=== PATIENT | male | born 1945 | race Caucasian/White ===

== ENCOUNTER 2016-07-23 16:55 | Emergency (ER) | payer MEDICARE ==
[~2016-07-23] VITALS: Ht 195.6 cm; Wt 89.5 kg
[~2016-07-23 16:55] MED LIST: ADVAIR INH; ASPI81TA2 PO; INSLIS SQ; INSU100C2 SQ; ZES20 PO
[2016-07-23 16:59] VITALS: BP 166/81; PULSE 58; RESP 20; O2SAT 98
--- NOTE | 2016-07-23 17:29 | ED.REPORT ---
HPI-Rash / Abscess Date of Service Jul 23, 2016 ED Provider: Ebenezer Walker MD The patient is a 70 year old male w/ a hx of DM type 2 and HTN who presents to the ED due to a blood blister on the 3rd toe of his right foot. The pt recently increased his daily walking regimen 2 days ago from 30 min to 1 hour every day. He took his socks off after his walk earlier this afternoon and he noticed the blister on his foot. He denies fever and pain in his feet and confirms slight numbness. Every morning and evening he feels warmth and sweating in his feet. Nursing Notes Stated Complaint: BLISTER ON TOE, DIABETIC Chief Complaint: Extremity Trauma Nursing Notes Reviewed: Yes ([employer], [employer] ot reconciled) Allergies: Coded Allergies: Penicillins (Verified Allergy, Severe, Rash, 12/18/10) Dust (Verified Allergy, Mild, 12/18/10) lisinopril (Verified Allergy, 10/28/12) Scheduled ([advair 250/50]) 1 PUFF INH BID Aspirin-Expunged Drug, Do Not Renew! (Aspirin-Expunged Drug, Do Not Renew!) 81 Mg Tablet 81 MG PO DAILY Azithromycin (Zithromax) 250 Mg Tablet 250 MG PO DAILY Insulin Glargine-Expunged Drug, Do Not Renew! (Lantus-Expunged Drug, Do Not Renew!) 100 U/Ml Cartridge 10 UNITS SQ HS Lisinopril-Expunged Drug, Do Not Renew! (Lisinopril-Expunged Drug, Do Not Renew! ) 20 Mg Tablet 20 MG PO DAILY Miscellaneous Medications Insulin Lispro-Expunged Drug, Do Not Renew! (Humalog-Expunged Drug, Do Not Renew !) 100 U/Ml Vial 0 SQ SLIDING SCALE General Time Seen by MD: 17:23 Chief Complaint Blisters Hx Obtained From: Patient Arrived By: Walk-in Onset Occurred: 2 days ago Symptom Duration: Since onset Location: : Foot Severity: Current: No pain currently Recent Healthcare: No recent hospitalization, Recent doctor visit Similar Sx Previous: No Past Medical History Past Medical History Independent diabetes Asthma/allergies History of peptic ulcer disease requiring gastric surgery BPH History of diabetic foot ulcers followed at the wound care clinic in 2012 Past Surgical History Oversew for gastric ulcer in 1966 Cochlear implant Reports: Tonsillectomy Smoking History Never Smoker Social History Alcohol Use: Denies alcohol use Review of Systems Constitutional: Denies: Fever Musculoskeletal: Denies: Extremity pain Skin: Reports Swelling (blood blister on 2nd toe of left foot) Complete sys rev & neg: except as marked. Physical Exam Physical Exam Notes: Initial Vital Signs Vital Signs (First) Date Time Temp Pulse Resp B/P Pulse Ox O2 Delivery O2 Flow Rate FiO2 07/23/16 16:59 36.8 58 20 166/81 98 07/23/16 19:34 Room Air Initial VS: Reviewed, Vital signs normal Head / Eyes: Atraumatic, Normocephalic ENT: Mucous membranes moist, Conjunctiva normal Neck: Supple, Non-tender Respiratory: Breath sounds normal, Clear to auscultation Cardiovascular: Regular rate & rhythm, Heart sounds normal Abdomen / GI: Soft, Non-tender General/Constitutional: Awake, Alert Toe Exam : Toe Exam: Positive: Swelling present... (Mild), Tenderness present... (Mild) , Toe name... (R third) hemorrhagic blister around the the tip of the right third toe no signs of interactive infection or cellulitis Procedures Incision & Drainage Abscess I & D Abscess: Chlorhexidine prep and small needle was used to drain fluid no purulence Time: 18:01 Procedure Performed by: ED physician Consent / Setup / Site Prep: Informed consent provided, Time-out performed, Hand hygiene observed, Stand sterile technique Post-Procedure / Complications: No complications, Condition improved, Tolerated procedure well, Patient stable Re-Eval/Medical Decision Med Decision/Clinical Course This is a 70-year-old male consulted and diabetes and mild neuropathy who noticed a hemorrhagic blister on his right third toe today and came in to be checked out. He has had no fever, reports she is trying to get more active for an hour rather than his usual 30 minutes and has been wearing unchanged use- resume it caused a friction injury. He simply routinely took off his socks and noticed the blister, so came in. He has not had fever, pain or other symptoms. He had a ulceration on the foot followed years ago that did resolve, but he is followed by the coin teller Dr. Majano. On exam he clinically appears well. He has a hemorrhagic blister around the the tip of the right third toe. There are no signs of interactive infection or cellulitis. I discussed that there is a debate regarding the benefits of draining the blister he wishes it to be drained-so it was. This was done following a chlorhexidine prep and a small needle was used to drain the lightly bloody fluid. There was no purulence. A small amount of was left in facility continued ongoing drainage and if indicated this can be removed in a day or 2 if it has not already fallen out. The patient like to be on oral antibiotics, but does have a penicillin allergy-and therefore per up-to-date's recommendations given the low probability of MRSA, and the low probability of actual active infection, the patient's being treated with a macrolide. He will be calling on Monday to follow-up with the coin teller. Return precautions and discharge instructions reviewed. Source of Hx: Old records Re-Evaluation/Progress : Time of Eval: 18:02 Re-Evaluation/Progress Note: Blood blister drained. Pt tolerated procedure well. Differential Diagnosis: Negative: AIDS/HIV, Abscess, Allergic reaction, Anorectal abscess, Anthrax, cutaneous, Bartholin's abscess, Contact dermatitis, Gangrene, Hand, foot, mouth disease, Heat rash, miliaria Counseled Regarding: Diagnosis, Lab results, Need for follow-up, When/why to return to ED Discharge & Departure Impression: Primary Impression: Blister of toe of right foot Encounter type: initial encounter Qualified Code: S90.424A - Blister ( nonthermal), right lesser toe(s), initial encounter Additional Impression: Diabetic foot Disposition: Home Discharge Condition All VS Reviewed: Yes Condition: Stable Additional Instructions: 1. The blister was drained today, and a small piece of suture material was left in place to facilitate further drainage. This piece is expected to follow out on its own, but can be removed one to 2 days by anyone if desired. 2. Apply antibiotic ointment daily.-It is okay to wait to Monday if he can be seen by Dr. Flowers on Monday for repeat inspection. However on Monday it is critical that your feet be rechecked on a daily basis to make sure the site is not becoming infected. 3. Take the antibiotic azithromycin 500mg today, then 250mg once a day for four additional days starting tomorrow. 4. Monitor your feet daily. The bandage should be removed, neosporin antibiotic applied, and the toe re-bandaged. You can do a daily soak in warm soapy water for the next week. 5. Follow up with Dr. Flowers this week. 5. Make sure your footware does not rub the toes (that is how this happened) 6. If you develop redness, swelling, fever or pain - return immediately to the ED. Referrals: Asad Thomas MD (PCP) Scribe Attestation Portion of this note were transcribed by Liz Zarate. I, Dr. Walker, personally performed the history, physical exam, and medical decision-making: I reviewed and confirmed the accuracy for the information in the transcribed note. Signed by: bonita Campbell, 07/23/161999 copies to: Asad Thomas MD, Matthew F MD Jul 23, 2016 17:29 Liz Zarate Jul 23, 2016 18:00
[2016-07-23] MEDS ORDERED: ZIT250 PO (18:47)
[2016-07-23 19:34] VITALS: BP 180/105; PULSE 80; RESP 20; O2SAT 98
== END 2016-07-23 19:36 | disposition home or self-care (01) ==
LOC: SED 16:55
DX: S90.424A Blister (nonthermal), right lesser toe(s), initial encounter (principal); X50.9XXA Other and unspecified overexertion or strenuous movements or postures, initial encounter; Y92.9 Unspecified place or not applicable; Y93.01 Activity, walking, marching and hiking; Y99.8 Other external cause status; E11.628 Type 2 diabetes mellitus with other skin complications; I10 Essential (primary) hypertension; J45.909 Unspecified asthma, uncomplicated; Z86.31 Personal history of diabetic foot ulcer; Z79.4 Long term (current) use of insulin; Z79.82 Long term (current) use of aspirin; Z88.0 Allergy status to penicillin; Z88.8 Allergy status to other drugs, medicaments and biological substances